=== PATIENT | female | born 1985 | race Hispanic/Latino ===

== ENCOUNTER 2017-08-01 04:47 | Inpatient (IN) | payer BC, OTHER, SELFPAY ==
[2017-08-01 05:17] VITALS: BMI 34.2
[2017-08-01] MEDS ORDERED: LR / Pitocin 40 units/1000 ml 1,000 ML IV PRN (06:28)
[2017-08-01] MEDS ORDERED: Promethazine HCl 25 MG/ML VIAL IM PRN ×2 (06:28→16:19)
[2017-08-01] MEDS ORDERED: Ibuprofen 800 MG TAB PO PRN (06:28)
[2017-08-01] MEDS ORDERED: Lidocaine 1% (PF) 30 ML VIAL SC PRN (06:28)
[2017-08-01] MEDS ORDERED: Misoprostol 200 MCG TAB PR PRN (06:28)
[2017-08-01] MEDS ORDERED: Ondansetron HCl/PF 4 MG/2 ML Vial IVP PRN ×3 (06:28→21:25)
[2017-08-01] MEDS ORDERED: Acetaminophen 500 MG TAB PO PRN (06:28)
[2017-08-01] MEDS ORDERED: HYDROcodone/Acetaminophen 5/325 mg Tablet PO PRN ×4 (06:28→21:25)
[2017-08-01] MEDS ORDERED: LR 500 ML/Oxytocin 10 units 500 ML IV SCH (06:30)
[2017-08-01 07:26] LABS: Hematocrit 33.9 % (36.0-47.0); Mean Platelet Volume 7.6 fL (7.4-10.4); Red Blood Cell (RBC) Count 3.88 mill/uL (4.20-5.40); White Blood Cell (WBC) Count 8.3 thou/uL (4.8-10.8)
[2017-08-01] MEDS ORDERED: FLU VACC QS2017-18 36 mo. & older 0.5 ML SYRINGE IM ONE (09:00)
--- NOTE | 2017-08-01 10:16 | PDOC.LDHP ---
Labor and Delivery H&P Chief complaint: loss of fluid (and contractions) Current gestational age (weeks): 38 Due date: 08/11/17 Dating criteria: first trimester ultrasound Grav: 3 Para: 2 OB History Details: GDM with previous two pregnancies. X 2 Current complications: gestational diabetes Abnormal US findings: No Current medications: pre-brianna vitamins Previous surgical history: none Allergies/Adverse Reactions: Allergies Allergy/AdvReac Type Severity Reaction Status Date / Time No Known Allergies Allergy Verified 08/01/17 05:15 Social history: none - Physical Exam Vital signs reviewed and normal: yes General: breathing through contractions Heart: RRR Lungs: nonlabored breathing Abdomen: gravid FHT: category 1 - Vaginal Exam cm dilated: 3 Effacement: 90% Station: -3 - OB Labs Blood type: A RH: positive HIV: negative RPR: negative HEPSAg: negative 1 hour GCT: positive 3 hour GTT: unknown (pt refused 3 hrs GTT test and was assumed GDM based on hx.) GBS: negative Urine drug screen: not done - Assessment L&D Assessment: term rupture in membranes - Plan Plan: admit to L&D (allow pt to ambulte to encourge contractions. If not cervical change, pitocin augmentation. )
--- NOTE | 2017-08-01 12:02 | PDOC.LDPN ---
Labor & Delivery Progress Note - Subjective Subjective: painful contractions - Objective Vital signs reviewed and normal: yes General: NAD Uterine fundus: non tender Dilation: 3 Effacement: 75% Station: -3 FHT: category 1 [place] contractions every: Q5-6mins Other exam findings: clear fluid, vertex by ultrasound Plan: labor augmentation -: start pitocin for labor augmentation.
[2017-08-01] MEDS: Lactated Ringer's 1,000 ML IV PRN ×2 (12:04→14:54)
[2017-08-01] MEDS ORDERED: Fentanyl 4 mcg/Marc 0.1% Cadd 100 ML ONE (13:57)
[2017-08-01] MEDS ORDERED: Ondansetron HCl/PF 4 MG/2 ML Vial ONE (16:02)
[2017-08-01] MEDS ORDERED: diphenhydrAMINE HCl 50 MG/ML 1 ML VIAL IVP PRN (16:19)
[2017-08-01] MEDS ORDERED: ePHEDrine/0.9% NaCl/PF SYRINGE 50 mg/10 ml SLOW IVP PRN (16:19)
[2017-08-01] MEDS ORDERED: Eucerin (Mineral Oil/Petrolatum,White) 30 gm Jar TOP PRN (16:19)
[2017-08-01] MEDS ORDERED: Lactated Ringer's 500 ML IV PRN (16:19)
[2017-08-01] MEDS ORDERED: Naloxone HCl 0.4 mg/ml Vial IVP PRN ×2 (16:19)
[2017-08-01] MEDS ORDERED: Acetaminophen 325 MG TAB PO PRN (16:19)
[2017-08-01] MEDS ORDERED: Communication Order-Pharmacy FS SCH (16:30)
[2017-08-01] MEDS ORDERED: Fentanyl 4mcg/Marcaine 0.1% Cassette 100 ML EPIDURAL SCH (16:30)
--- NOTE | 2017-08-01 17:56 | PDOC.OPDEL ---
OB Operative/Delivery Note Delivery Dr/Surgeon: Sheree Hong CNM Pre-Delivery Diagnosis: active labor (with augmentation at 12 hours of PROM) Procedure/Post Delivery Dx: spontaneous vaginal delivery Weeks gestation: 38 - Findings A Sex: male Weight: 7 lb 2 oz - 5 min: 8 - 10 min: 9 - Additional Findings/Plan Placenta delivered: spontaneous Repaired Obstetrical Laceration: none Estimated blood loss: 200 Compilations/Other Findings: Varaible decelerations recurrently since 1500 with spontaneous return to baseline Variable decelerations with pushing to the 80-90 bpms with occasional deep variable decelerations to the 60s. Dr. Qureshi the OB hospitalist was notified, but was in the ER at the time. Dr. Raines was also notified by phone to observe FHT strip from home. Baby was delivered with a loose nuchal cord and terminal meconium. Post delivery plan: routine recovery
[2017-08-01] MEDS ORDERED: Milk Of Magnesia 30 ML UDCUP PO PRN (21:25)
[2017-08-01] MEDS ORDERED: Adacel (T-DAP) 0.5 ML VIAL IM ONE (21:25)
[2017-08-01] MEDS ORDERED: Bisacodyl 10 MG SUPP PR PRN (21:25)
[2017-08-01] MEDS ORDERED: LR / Pitocin 40 units/1000 ml 1,000 ML IV SCH (21:25)
[2017-08-01] MEDS ORDERED: Benzocaine/Menthol 20-0.5% 60 ML CAN TOP PRN (21:25)
[2017-08-01] MEDS ORDERED: Measles/Mumps/Rubella 10 MCG/0.5 ML VIAL SC ONE (21:25)
[2017-08-01] MEDS ORDERED: Lanolin Ointment 7 GM TUBE TOP PRN (21:25)
[2017-08-01] MEDS ORDERED: Misoprostol 200 MCG TAB VAG SCH (21:25)
[2017-08-01] MEDS: Ibuprofen 800 MG TAB PO SCH (21:44)
[2017-08-02] MEDS: Lactated Ringer's 1,000 ML IV PRN (04:54)
[2017-08-02] MEDS: Ibuprofen 800 MG TAB PO SCH ×3 (05:56→21:35)
[2017-08-02 06:09] LABS: Hematocrit 33.3 % (36.0-47.0); Mean Platelet Volume 7.1 fL (7.4-10.4); Red Blood Cell (RBC) Count 3.78 mill/uL (4.20-5.40); White Blood Cell (WBC) Count 10.2 thou/uL (4.8-10.8)
[2017-08-02] MEDS: Ferrous Sulfate 325 MG TAB PO SCH ×2 (07:38→14:42)
[2017-08-02] MEDS: Docusate (Surfak) 240 MG CAP PO SCH ×2 (08:46→21:35)
[2017-08-02] MEDS: Prenatal Vitamin 1 TAB PO SCH (08:46)
[2017-08-02 20:54] VITALS: TEMP 98
[2017-08-03] MEDS: Ibuprofen 800 MG TAB PO SCH (05:43)
[2017-08-03] MEDS: Ferrous Sulfate 325 MG TAB PO SCH (08:03)
[2017-08-03] MEDS: Prenatal Vitamin 1 TAB PO SCH (09:10)
[2017-08-03] MEDS: Docusate (Surfak) 240 MG CAP PO SCH (09:10)
[2017-08-03 09:28] VITALS: BP 126/79
--- NOTE | 2017-08-03 10:40 | PDOC.PP ---
Post Progress Note Post Day #: 2 -: doing well. no concerns. BF well - but freq. Denies urinary difficulty. PO intake tolerated: yes Flatus: yes Ambulation: yes Vital Signs (12 hours) Temp Pulse Resp BP 08/03/17 09:00 98.0 F 78 18 126/79 Weight Weight 187 lb - Physical Examination General: NAD Cardiovascular: no m/r/g Psychiatric: A&Ox3 Result Diagrams: 08/02/17 05:55 Additional Labs: Post Labs Hep Bs Antigen Non-Reactive S/CO (NonReactive) 08/01/17 05:50 (1) (spontaneous vaginal delivery) Code(s): O80 - ENCOUNTER FOR FULL-TERM UNCOMPLICATED DELIVERY Status: Acute - Assessment/Plan discharge home today
== END 2017-08-03 11:47 | disposition home or self-care (01) | DRG 775 ==
LOC: L&D/OP 04:47 → L&D 05:41 → 3SE 21:02
PROVIDERS: ADMIT Obstetrics & Gynecology; ATTEND Obstetrics & Gynecology
PROC: 10E0XZZ Delivery of Products of Conception, External Approach (ICD-10-PCS; principal; 2017-08-01)
PROC: 3E0P3VZ Introduction of Hormone into Female Reproductive, Percutaneous Approach (ICD-10-PCS; 2017-08-01)
PROC: 4A0HXCZ Measurement of Products of Conception, Cardiac Rate, External Approach (ICD-10-PCS; 2017-08-01)
DX: O24.429 Gestational diabetes mellitus in childbirth, unspecified control (principal); O77.0 Labor and delivery complicated by meconium in amniotic fluid; O69.81X1 Labor and delivery complicated by cord around neck, without compression, fetus 1; O76 Abnormality in fetal heart rate and rhythm complicating labor and delivery; Z3A.38 38 weeks gestation of pregnancy; Z37.0 Single live birth
CPT/HCPCS: 36415; 76815; 85027; 86780; 87340; J2405; J7120

== ENCOUNTER 2024-07-20 07:37 | Day surgery (SDC) | payer BC ==
[2024-07-19 11:19] VITALS: BMI 35.2
[2024-07-20] MEDS ORDERED: LevoFLOXacin D5W 500 mg (100 mL) BAG ONE (08:23)
[2024-07-20] MEDS ORDERED: fentaNYL PF 100 MCG/2 ML SYRINGE ONE ×2 (09:07→10:49)
[2024-07-20] MEDS ORDERED: PROPOFOL 20 ML ONE (09:07)
[2024-07-20] MEDS ORDERED: Midazolam HCl 2 mg/2 ml Vial ONE ×2 (09:07→09:20)
[2024-07-20] MEDS ORDERED: Dexamethasone 20 MG/5 ML VIAL ONE (10:31)
[2024-07-20] MEDS ORDERED: Lidocaine 1% PF 5 ML VIAL ONE (10:31)
[2024-07-20] MEDS ORDERED: Ondansetron PF 4 MG/2 ML Vial ONE (10:31)
[2024-07-20] MEDS ORDERED: Ketorolac Tromethamine 30 MG (1 mL) VIAL ONE (11:07)
[2024-07-20] MEDS ORDERED: Phenazopyridine HCl 100 MG TAB ONE (11:46)
[2024-07-20] MEDS ORDERED: Oxybutynin 5 MG TAB ONE (11:46)
[2024-07-20] MEDS ORDERED: Promethazine HCl 25 MG/ML VIAL ONE (11:47)
== END 2024-07-20 13:49 | disposition home or self-care (01) ==
LOC: SDC 07:37
PROVIDERS: ATTEND Urology
PROC: 0T778DZ Dilation of Left Ureter with Intraluminal Device, Via Natural or Artificial Opening Endoscopic (ICD-10-PCS; principal; 2024-07-20)
PROC: 0TC78ZZ Extirpation of Matter from Left Ureter, Via Natural or Artificial Opening Endoscopic (ICD-10-PCS; principal; 2024-07-20)
DX: N20.1 Calculus of ureter (principal); I12.9 Hypertensive chronic kidney disease with stage 1 through stage 4 chronic kidney disease, or unspecified chronic kidney disease; N18.9 Chronic kidney disease, unspecified; Z90.49 Acquired absence of other specified parts of digestive tract; Z98.890 Other specified postprocedural states
CPT/HCPCS: 82365; 88300; C1713; C1747; C1769; C2617; J1100; J1885; J1956; J2250; J2405; J2550; J2704

== ENCOUNTER 2024-11-20 10:54 | Outpatient (CLI) | payer BC | END 2024-11-20 10:55 | disposition home or self-care (01) | LOC: ULT 10:54 | PROVIDERS: ATTEND Urology | DX: N20.0 Calculus of kidney (principal) | CPT/HCPCS: 76770 ==